=== PATIENT | female | born 2000 | race Two or more races ===

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

== ENCOUNTER 2021-09-06 08:14 | Emergency (ER) | payer OTHER ==
[~2021-09-06] VITALS: Ht 157.5 cm; Wt 91.2 kg
== END 2021-09-06 10:15 | disposition home or self-care (01) ==
LOC: EMR PED 08:14 → ER 08:27 → EMR PED 08:27
DX: H66.92 Otitis media, unspecified, left ear (principal)

== ENCOUNTER 2022-03-15 16:43 | Emergency (ER) | payer OTHER ==
[~2022-03-15] VITALS: Ht 157.5 cm; Wt 84.4 kg
== END 2022-03-15 21:18 | disposition home or self-care (01) ==
LOC: ER 16:43
DX: K52.9 Noninfective gastroenteritis and colitis, unspecified (principal)

== ENCOUNTER 2023-04-17 15:17 | Emergency (ER) | payer OTHER ==
[~2023-04-17] VITALS: Ht 157.5 cm; Wt 84.4 kg
== END 2023-04-17 17:59 | disposition home or self-care (01) ==
LOC: ER 15:17
DX: M54.89 Other dorsalgia (principal)

== ENCOUNTER 2023-05-21 10:04 | Emergency (ER) | payer OTHER ==
[~2023-05-21] VITALS: Ht 157.5 cm; Wt 84.4 kg
== END 2023-05-21 14:16 | disposition home or self-care (01) ==
LOC: ER 10:04
DX: R10.2 Pelvic and perineal pain (principal)

== ENCOUNTER 2023-11-20 14:39 | Emergency (ER) | payer OTHER ==
[~2023-11-20] VITALS: Ht 157.5 cm; Wt 88.0 kg
== END 2023-11-20 17:25 | disposition home or self-care (01) ==
LOC: ER 14:39
DX: J06.9 Acute upper respiratory infection, unspecified (principal)

== ENCOUNTER 2024-10-21 09:10 | Emergency (ER) | payer OTHER ==
[~2024-10-21] VITALS: Ht 157.5 cm; Wt 89.4 kg
[2024-10-21] MEDS ORDERED: AMOX-CLAV 875-1 EACH PO (09:48)
[2024-10-21] MEDS ORDERED: DEXAMETHASONE SODIUM PHOSPHATE 4 MG/ML VIAL IM ONE (10:00)
[2024-10-21] MEDS ORDERED: CEFTRIAXONE SODIUM 1,000 MG VIAL IM ONE (10:00)
== END 2024-10-21 10:24 | disposition home or self-care (01) ==
LOC: ER 09:12
DX: J03.90 Acute tonsillitis, unspecified (principal)

== ENCOUNTER 2025-07-20 11:48 | Emergency (ER) | payer OTHER ==
[~2025-07-20] VITALS: Ht 157.5 cm; Wt 82.6 kg
[~2025-07-20 11:48] MED LIST changes: +AMOX-CLAV 875-1 EACH PO
[2025-07-20 11:52] VITALS: BP 130/80; O2SAT 100
[2025-07-20] MEDS ORDERED: BENZONATATE 200 MG CAPSULE PO ONE (12:30)
[2025-07-20] MEDS ORDERED: KETOROLAC TROMETHAMINE 60 MG VIAL IM ONE (12:30)
[2025-07-20 13:47] LABS: BASO % 0.4 % (0.1-1.2); EOS # 0.09 (0.04-0.54); EOS % 1.2 % (0.7-7.0); LYMPH # 2.59 (1.18-3.74); LYMPH % 35.3 % (19.3-53.1); MEAN PLATELET VOLUME 9.60 fl (9.4-12.4); MONO # 0.65 (0.24-0.82); MONO % 8.9 % (4.7-12.5); NEUT # 3.96 (1.56-6.13); NEUT % 54.1 % (34.0-71.1); RED CELL DISTRIBUTION WIDTH 16.5 % (11.6-14.4)
[2025-07-20 14:50] LABS: COVID-19 AG POSITIVE (NEGATIVE)
[2025-07-20] MEDS ORDERED: ZYRTEC10 MG PO (14:51)
[2025-07-20] MEDS ORDERED: BENZONATATE200 M1 PO (14:51)
[2025-07-20] MEDS ORDERED: PEPCID AC20 MG PO (14:51)
== END 2025-07-20 15:03 | disposition home or self-care (01) ==
LOC: ER 11:48
PROVIDERS: General Practice
DX: U07.1 COVID-19 (principal); J03.80 Acute tonsillitis due to other specified organisms; I49.8 Other specified cardiac arrhythmias; I10 Essential (primary) hypertension